=== PATIENT | male | born 1970 | race African-American/Black ===

== ENCOUNTER 2016-09-12 20:00 | Emergency (ER) | payer MEDICARE ==
[~2016-09-12] VITALS: Ht 177.8 cm; Wt 77.1 kg
--- NOTE | 2016-09-12 21:31 | NUR ---
the patient request's lithium refill; however, the ER physician explained to him that he needs to follow up his psychiatrist. Patient discharged to home in stable condition. Written and verbal after care instructions given. Patient verbalizes understanding of instruction.
[2016-09-12 21:33] VITALS: BP 142/97
== END 2016-09-12 21:34 | disposition home or self-care (01) ==
LOC: ER 20:08
DX: F31.9 Bipolar disorder, unspecified (principal)
CPT/HCPCS: A4606; Z7610

== ENCOUNTER 2016-09-14 13:16 | Emergency (ER) | payer MEDICARE ==
[~2016-09-14] VITALS: Ht 177.8 cm; Wt 86.2 kg
--- NOTE | 2016-09-14 13:24 | NUR ---
PT BIB SELF FEELS DEHYDRATED. HEADACHE. S/P BINGE DRINKING X 7 DAYSM, STOPPED LAST NIGHT. PLACED ON MONITOR. AWAITING MD ORDER
--- NOTE | 2016-09-14 13:30 | NUR ---
LAC #[id number] IV ACCESS.
[2016-09-14] MEDS ORDERED: THIAMINE HCL 100 MG TABLET ONE (13:54)
[2016-09-14] MEDS ORDERED: IV NS 0.9% 1,000 ML ONE (13:55)
[2016-09-14] MEDS ORDERED: IV D5/0.45 NACL 500 ML IV ONE ×2 (13:55→14:00)
[2016-09-14] MEDS ORDERED: FOLIC ACID 1 MG TABLET ONE (13:55)
[2016-09-14] MEDS ORDERED: IV SET PRIMARY PUMP SET 1 EA INFUS.SET MC ONE (13:55)
[2016-09-14] MEDS ORDERED: LORAZEPAM INJ 2 MG/ML VIAL ONE (13:55)
[2016-09-14] MEDS ORDERED: THIAMINE HCL 100 MG TABLET PO ONE (14:00)
[2016-09-14] MEDS ORDERED: FOLIC ACID 1 MG TABLET PO ONE (14:00)
[2016-09-14] MEDS ORDERED: IV NS 0.9% 1,000 ML BAG IV ONE (14:00)
[2016-09-14] MEDS ORDERED: LORAZEPAM INJ 2 MG/ML VIAL IV ONE (14:00)
--- NOTE | 2016-09-14 14:50 | NUR ---
IV removed. Catheter intact and site benign. Pressure and 4x4 applied to site. No bleeding noted.
--- NOTE | 2016-09-14 15:00 | NUR ---
Patient discharged to home in stable condition. Written and verbal after care instructions given. Patient verbalizes understanding of instruction. Pt ambulatory with a steady gait.
[2016-09-14 15:10] VITALS: BP 131/79
== END 2016-09-14 15:11 | disposition home or self-care (01) ==
LOC: ER 13:20
DX: E86.0 Dehydration (principal); F31.9 Bipolar disorder, unspecified; F10.10 Alcohol abuse, uncomplicated
CPT/HCPCS: A4606; J2060; J3490; J7030; Z7610